=== PATIENT | female | born 1950 | race Caucasian/White ===

== ENCOUNTER → 2017-06-30 | Outpatient (CLI) | payer OTHER | LOC: BMCIMAGING 13:11 | PROVIDERS: ATTEND Orthopaedic Surgery | DX: M16.12 Unilateral primary osteoarthritis, left hip (principal) ==

== ENCOUNTER → 2017-08-05 | Outpatient (CLI) | payer OTHER | LOC: BMCIMAGING 13:15 | PROVIDERS: ATTEND Internal Medicine | DX: Z12.31 Encounter for screening mammogram for malignant neoplasm of breast (principal) | CPT/HCPCS: G0202 ==

== ENCOUNTER → 2017-09-09 | Outpatient (CLI) | payer OTHER | LOC: FIMAGING 09:59 | PROVIDERS: ATTEND Orthopaedic Surgery | DX: Z01.818 Encounter for other preprocedural examination (principal); M16.0 Bilateral primary osteoarthritis of hip; K57.30 Diverticulosis of large intestine without perforation or abscess without bleeding ==

== ENCOUNTER 2017-09-20 09:14 | Inpatient (IN) | payer OTHER ==
--- NOTE | 2017-09-20 06:37 | PDIAF ---
- Diagnosis Diagnosis: right hip arthritis Code Status: Full Code - Medication Management Discharge Medications: Medications to Continue on Transfer Cholecalciferol Vit D3 [Vitamin D3 (*)] 1,000 units PO DAILY 08/16/17 [Last Taken Unknown] Cyanocobalamin [Vitamin B12 (*)] 1,000 mcg PO DAILY 08/16/17 [Last Taken Unknown ] Levothyroxine [Synthroid 25 mcg (*)] 12.5 mcg PO DAILY06 08/16/17 [Last Taken Unknown] Discharge Medications: Refer to the Discharge Home Medication list for PRN reason. - Orders Services needed: Home Care, Physical Therapy Home Care Face to Face: I certify that this patient was under my care and that I had the required [id number] encounter meeting the encounter requirements on the discharge day. My findings support the fact that the patient is homebound as defined in Home Care Face to Face Continued: [facility] Chapter 7 Medicare Benefits Manual 30.1.1 , The condition of the patient is such that there exists a normal inability to leave home and consequently, leaving home would require a considerable and taxing effort. Diet Recommendation: no restrictions on diet Diet Texture: Regular Texture Diet Activity/Weight Bearing Restrictions: wbat. anterior hip precautions. daily dressing changes. ice prn. nava hose x 2 weeks. f/u at two weeks as previously scheduled. aspirin 325 mg po daily for six weeks. seek attn for increasing pain, cp, sob, drainage. fevers or other focal complaints - Follow Up Care Current Providers and Referrals: Lashell Wolf MD [Primary Care Provider] -
--- NOTE | 2017-09-20 06:37 | PDHPUP ---
History & Physical Update H&P update statement: This history and physical update is based on an assessment of the patient which was completed after admission or registration (within 24 hours), but prior to the surgery/procedure.
[~2017-09-20 09:14] MED LIST: ROPIVACAINE 0.2% 80 MG, EPINEPHrine 0.2 MG, KETOROLAC TROMETHAMINE 30 MG, morphINE 10 M... IU ONE; TRANEXAMIC ACID 1,700 MG in NS 100 ML IV ONE
[2017-09-20] MEDS ORDERED: ceFAZolin 2 GM/SWFI 2 GM/20 ML SYR IVP ONE (09:53)
[2017-09-20] MEDS ORDERED: ACETAMINOPHEN 325 MG TAB PO ONE (09:53)
[2017-09-20] MEDS ORDERED: FAMOTIDINE 20 MG TAB PO ONE (09:53)
[2017-09-20] MEDS ORDERED: LR 1,000 ML IV ONE (09:54)
[2017-09-20] MEDS ORDERED: LIDOCAINE 1% 2 ML INJ ID PRN (09:54)
[2017-09-20] MEDS ORDERED: ceFAZolin 1 GM/5 ML SYR ONE (10:32)
--- NOTE | 2017-09-20 10:33 | PDANEPAE ---
ANE History of Present Illness 67 yo female with B hip OA, but more pain on R hip for R JEANIE. ANE Past Medical History - Cardiovascular History Hx Hypertension: No Hx Arrhythmias: No Hx Chest Pain: No Hx Coronary Artery / Peripheral Vascular Disease: No Hx CHF / Valvular Disease: No Hx Palpitations: No - Pulmonary History Hx COPD: No Hx Asthma/Reactive Airway Disease: No Hx Recent Upper Respiratory Infection: No Hx Oxygen in Use at Home: No Hx Sleep Apnea: No Sleep Apnea Screening Result - Last Documented: Negative - Neurologic History Hx Cerebrovascular Accident: No Hx Seizures: No Hx Dementia: No - Endocrine History Hx Diabetes: No Hypothyroid: Yes Obesity: moderate - Renal History Hx Renal Disorders: No - Liver History Hx Hepatic Disorders: No - Neurological & Psychiatric Hx Hx Neurological and Psychiatric Disorders: No - Cancer History Hx Cancer: No - Congenital Disorder History Hx Congenital Disorders: No - GI History GERD: no Hx Gastrointestinal Disorders: No - Other Health History Other Health History: arthritis - Surgical History Prior Surgeries: tonsillectomy ANE Review of Systems Review of Systems: - Exercise capacity METS (RN): 4 METS - Systems Constitutional: Reports: no symptoms Cardiac: Reports: no symptoms Respiratory: Reports: no symptoms Gastrointestinal: Reports: no symptoms Muscolosketal: Reports: joint pain ANE Patient History - Allergies Allergies/Adverse Reactions: No Known Allergies Allergy (Unverified 08/16/17 14:41) - Home Medications Home Medications: Cholecalciferol Vit D3 [Vitamin D3 (*)] 1,000 units PO DAILY 08/16/17 [Last Taken 09/15/17] Cyanocobalamin [Vitamin B12 (*)] 1,000 mcg PO DAILY 08/16/17 [Last Taken ] Levothyroxine [Synthroid 25 mcg (*)] 12.5 mcg PO DAILY06 08/16/17 [Last Taken ] - NPO status NPO Since - Liquids (Date): 09/19/17 NPO Since - Liquids (Time): 17:00 NPO Since - Solids (Date): 09/19/17 NPO Since - Solids (Time): 17:00 - Anes Hx Anes Hx: no prior problems - Smoking Hx Smoking Status: Never smoked - Alcohol Use Alcohol Use: Heavy (4 drinks nightly) - Family Anes Hx Family Anes Hx: neg - N/A Family Hx Anesthesia Complications: none ANE Labs/Vital Signs - Vital Signs Blood Pressure: 141/83 Heart Rate: 101 Respiratory Rate: 16 O2 Sat (%): 92 Height: 165.1 cm Weight: 83.461 kg ANE Physical Exam - Airway Neck exam: FROM Mallampati Score: Class 3 Mouth exam: normal dental/mouth exam - Pulmonary Pulmonary: clear to auscultation - Cardiovascular Cardiovascular: regular rate and rhythym - ASA Status ASA Status: II ANE Anesthesia Plan Anesthesia Plan: spinal
[2017-09-20] MEDS ORDERED: fentaNYL 100 MCG/2 ML INJ ONE (11:16)
[2017-09-20] MEDS ORDERED: DEXAMETHASONE 4 MG/ML VIAL ONE (11:16)
[2017-09-20] MEDS ORDERED: ONDANSETRON 4 MG/2 ML VIAL ONE (11:16)
[2017-09-20] MEDS ORDERED: PROPOFOL/EMULSION 500 MG/50 ML BOTTLE IV ONE ×2 (11:17→12:10)
[2017-09-20] MEDS ORDERED: PHENYLEPHRINE HCL 100 MCG/ML SYR ONE ×3 (12:02→12:23)
[2017-09-20] MEDS ORDERED: PHENYLEPHRINE 10 MG/ML SDV ONE (12:44)
[2017-09-20] MEDS ORDERED: ALBUMIN 5% 250 ML BOTTLE IV ONE (12:47)
[2017-09-20] MEDS ORDERED: PROMETHAZINE HCL 25 MG/ML INJ IVP PRN ×2 (12:55→13:06)
[2017-09-20] MEDS ORDERED: BISACODYL 10 MG SUPP PR PRN (12:55)
[2017-09-20] MEDS ORDERED: ONDANSETRON DISINTEGRATING 4 MG TAB PO PRN (12:55)
[2017-09-20] MEDS ORDERED: ONDANSETRON 4 MG/2 ML VIAL IVP PRN (12:55)
[2017-09-20] MEDS ORDERED: METOCLOPRAMIDE 10 MG/2 ML VIAL IVP PRN (12:55)
[2017-09-20] MEDS ORDERED: TEMAZEPAM 15 MG CAP PO PRN (12:55)
[2017-09-20] MEDS ORDERED: POLYETHYLENE GLYCOL 3350 17 GM PKT PO PRN (12:55)
[2017-09-20] MEDS ORDERED: LACTULOSE 20 GM/30 ML UDCUP PO PRN (12:55)
[2017-09-20] MEDS ORDERED: MAGNESIUM HYDROXIDE 30 ML UDCUP PO PRN (12:55)
[2017-09-20] MEDS ORDERED: diphenhydrAMINE 25 MG CAP PO PRN (12:55)
[2017-09-20] MEDS ORDERED: DIPHENOXYLATE/ATROPINE LOMOTIL 1 TAB PO PRN (12:55)
[2017-09-20] MEDS ORDERED: PROMETHAZINE HCL 25 MG SUPPR PR PRN (12:55)
[2017-09-20] MEDS ORDERED: DIAZEPAM 5 MG TAB PO PRN (12:55)
[2017-09-20] MEDS ORDERED: LR 1,000 ML IV SCH (13:00)
[2017-09-20] MEDS ORDERED: fentaNYL 100 MCG/2 ML INJ IVP PRN (13:06)
[2017-09-20] MEDS ORDERED: LR 500 ML IV PRN (13:06)
[2017-09-20] MEDS ORDERED: ACETAMINOPHEN 500 MG TAB PO PRN (13:06)
[2017-09-20] MEDS ORDERED: NALOXONE HCL 0.4 MG/ML INJ IVP PRN (13:06)
[2017-09-20] MEDS ORDERED: PHENYLEPHRINE HCL 100 MCG/ML SYR IVP PRN (13:06)
[2017-09-20] MEDS ORDERED: ALBUTEROL 3 ML DEYVIAL IH PRN (13:06)
[2017-09-20] MEDS ORDERED: OXYCODONE/APAP 5/325 TAB PO PRN (13:06)
--- NOTE | 2017-09-20 13:22 | POSTANESTH ---
Post Anesthetic Evaluation Cardiovascular Status: Tx Hyper/Hypo-tension, Tx Over/Under Hydration (Suspect pt dehydrated plus untreated hypertension led to intra-operative hypotension. Continuing to give IVF as needed.) Respiratory Status: Normal, Stable Level of Consciousness/Mental Status: Can Participate in Eval, Moderately Sleepy Pain Control: Adequate, Prn Tx Ordered Nausea/Vomiting Control: Adequate, Prn Tx Ordered Complications Possibly Related to Anesthesia: None Noted
[2017-09-20] MEDS ORDERED: ceFAZolin 2 GM/DEXTROSE 100 ML IV SCH (14:00)
[2017-09-20] MEDS: oxyCODONE IR 5 MG TAB PO PRN ×3 (15:09→22:38)
[2017-09-20] MEDS: TRANEXAMIC ACID 650 MG TAB PO SCH ×2 (16:02→20:03)
[2017-09-20] MEDS: ACETAMINOPHEN 325 MG TAB PO SCH ×2 (18:13→23:55)
[2017-09-20] MEDS: ceFAZolin 2 GM/SWFI 2 GM/20 ML SYR IVP SCH (20:02)
[2017-09-20] MEDS: SENNOSIDES/DOCUSATE SODIUM TAB PO SCH (20:02)
[2017-09-20] MEDS: FAMOTIDINE 20 MG TAB PO SCH (20:03)
[2017-09-20] MEDS: ASPIRIN 325 MG TAB PO SCH (22:38)
[2017-09-21 04:55] VITALS: RESP 16
[2017-09-21 05:04] LABS: HEMATOCRIT 36.9 % (38.0-47.0); HEMOGLOBIN 12.7 g/dL (12.6-16.3)
[2017-09-21] MEDS: ceFAZolin 2 GM/SWFI 2 GM/20 ML SYR IVP SCH (05:19)
[2017-09-21] MEDS: TRANEXAMIC ACID 650 MG TAB PO SCH (05:20)
[2017-09-21] MEDS: ACETAMINOPHEN 325 MG TAB PO SCH (05:21)
[2017-09-21] MEDS ORDERED: LEVOTHYROXINE 25 MCG TAB PO SCH (06:00)
--- NOTE | 2017-09-21 07:23 | PDIAF ---
- Diagnosis Diagnosis: right hip arthritis Code Status: Full Code - Medication Management Discharge Medications: Medications to Continue on Transfer Cholecalciferol Vit D3 [Vitamin D3 (*)] 1,000 units PO DAILY 08/16/17 [Last Taken 09/15/17] Cyanocobalamin [Vitamin B12 (*)] 1,000 mcg PO DAILY 08/16/17 [Last Taken ] Levothyroxine [Synthroid 25 mcg (*)] 12.5 mcg PO DAILY06 08/16/17 [Last Taken ] Aspirin [Aspirin 325 mg (*)] 325 mg PO DAILY tab 09/21/17 [Last Taken Unknown] oxyCODONE IR [Oxycodone Ir (*)] 5 - 10 mg PO Q3HRS PRN #90 tab 09/21/17 [Last Taken Unknown] Discharge Medications: Refer to the Discharge Home Medication list for PRN reason. - Orders Services needed: Home Care, Physical Therapy Home Care Face to Face: I certify that this patient was under my care and that I had the required [id number] encounter meeting the encounter requirements on the discharge day. My findings support the fact that the patient is homebound as defined in Home Care Face to Face Continued: CMS Chapter 7 Medicare Benefits Manual 30.1.1 , The condition of the patient is such that there exists a normal inability to leave home and consequently, leaving home would require a considerable and taxing effort. Diet Recommendation: no restrictions on diet Diet Texture: Regular Texture Diet Activity/Weight Bearing Restrictions: wbat. anterior hip precautions. daily dressing changes. ice prn. nava hose x 2 weeks. f/u at two weeks as previously scheduled. aspirin 325 mg po daily for six weeks. seek attn for increasing pain, cp, sob, drainage. fevers or other focal complaints - Follow Up Care Current Providers and Referrals: Lashell Wolf MD [Primary Care Provider] -
[2017-09-21 07:40] VITALS: BP 116/68; PULSE 70; TEMP 97.4; O2SAT 95
[2017-09-21] MEDS: oxyCODONE IR 5 MG TAB PO PRN (07:47)
[2017-09-21] MEDS: SENNOSIDES/DOCUSATE SODIUM TAB PO SCH (09:32)
[2017-09-21] MEDS: ASPIRIN 325 MG TAB PO SCH (09:32)
[2017-09-21] MEDS: FAMOTIDINE 20 MG TAB PO SCH (09:32)
--- NOTE | 2017-09-21 14:27 | ASDISCHSUM ---
Discharge Information Plan Status:Home with No Needs Medically Cleared to Leave: Discharge Date:09/21/2017 11:59 AM CM D/C Disposition:Home, Routine, Self-Care ADT D/C Disposition:Home Health Service Projected Discharge Date:09/21/2017 11:59 AM Transportation at D/C: Discharge Delay Reason: Follow-Up Date:09/21/2017 11:59 AM Discharge Slot: Final Diagnosis: Placement Information Patient Contact Information Contact Name:LINDSEY Relationship: Address:[address] Work Phone: City:[place] Alternate Phone: State/Zip Code:[place] [address] Email: Financial Information Financial Class: Primary Plan Desc:MEDICARE INPATIENT Primary Plan Number:[id number] Secondary Plan Desc:[facility] Secondary Plan Number:[id number] Assessment Information CM 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 class; sent online vide o link CM Note CM Note Notes: Emma is planning to discharge back to her home after surgery. Her daughter, son, and will be home with her for support. Emma has set up outpatient therapy and will be obtaining a walker prior to her surgery. She expressed being in pain currently and had questions regarding medications. I encouraged her to follow-up with Dr. Herzog office for medical advice. Date Signed: 09/17/2017 09:00 AM Electronically Signed By:Janay Fernandez [facility] CM Progress Note CM Note CM Note Notes: Pt medically stable for d/c with family support, pt will follow up with outpatient PT. No CM d/c needs identified. Date Signed: 09/21/2017 02:26 PM Electronically Signed By:MJ Brown Intervention Information
--- NOTE | 2017-09-21 17:41 | GDS ---
[f rep st] DISCHARGE SUMMARY DATE OF PROCEDURE: 09/20/2017 ADMIT DIAGNOSIS: Left hip degenerative joint disease. DISCHARGE DIAGNOSIS: Left hip degenerative joint disease. PROCEDURE: Left total hip arthroplasty. HISTORY OF PRESENT ILLNESS: The patient is a 67-year-old woman with end-stage arthritis to both hips . She has limitations in her activities of daily living. She desires operative intervention. I hav e recommended total hip replacement. She understood the risks, benefits, and alternatives and wished to proceed. Written consent was signed and placed in the patient's chart. HOSPITAL COURSE: The patient was admitted to the hospital floor after an uncomplicated total hip art hroplasty to her left side. She tolerated the procedure well. Postoperative course was unremarkable . At the time of discharge, she is tolerating an oral diet. Pain is well controlled on oral medicin es. She is voiding without difficulty. Dressing is clean, dry, and intact. She has negative Homans . X-rays are stable, anatomic alignment with concentric reduction and no fracture. DISCHARGE ACTIVITY: She is weightbearing as tolerated. Anterior hip precautions. Daily dressing ch anges. No soaking or immersion. FOLLOWUP: For increasing pain, swelling, or other focal complaint. DISCHARGE MEDICATIONS: Oxycodone 5 mg 1-2 every 6 hours p.r.n. pain, aspirin 325 mg p.o. daily. /[id number]/MODL
--- NOTE | 2017-09-22 21:28 | GOP ---
[f rep st] OPERATIVE REPORT DATE OF OPERATION: 09/20/2017 SURGEON: Sanchez Aceves MD LINOLEUM PRINTER: Tera Magallanes, neurosurgical nurse. Also present PAMELA Camacho, was a medical necessity fo r the entirety of the case. PREOPERATIVE DIAGNOSIS: Left hip degenerative joint disease. POSTOPERATIVE DIAGNOSIS: Left hip degenerative joint disease. PROCEDURE PERFORMED: Left total hip arthroplasty-anterior/MAKOplasty. FINDINGS: SPECIMENS: To Pathology, the femoral head. DESCRIPTION OF PROCEDURE: The patient was identified in the preanesthesia area. The left hip clearl y demarcated as operative site with indelible marker. She was given 2 g of Ancef intravenously en ro jayme to the operative suite. In the OR, general endotracheal anesthesia was administered. Attention was turned to the pelvis and lower extremity which was sterilely prepped and draped in usual fashion. Appropriate time-out procedure was carried out. Attention was first turned to the right hemipelvis . A 2 cm incision was made over the ASIS and 3 pins were placed into the pelvic ilium. The pelvic r eference array was then affixed in standard fashion. Attention was then turned to the left hip. An anterior approach was made. This was carried sharply through the skin and subcutaneous tissue, direc tly to the fascia of the tensor fascia renato. The fascia was opened in a linear fashion, elevated off the tensor. The tensor was retracted laterally. The underlying vascular structures were identified , ligated, cauterized and transected. The rectus elevated off the anterior capsule. Retractors were placed in an extracapsular position over the medial and superior aspect of the femoral neck. A T wa s made in the capsule and the retractors were placed into an intracapsular position. There was gross bony changes consistent with arthritis. An acetabular checkpoint was then placed. A napkin wedge b one resection was made through the femoral neck and the head removed. The remnants of the acetabular labrum were sharply excised. The acetabulum was then reamed with a 52 mm outer diameter reamer to t he appropriate depth with an opening angle of 40 degrees and anteversion of 20 degrees. A 52 mm acet abular shell was then placed, confirmed to be fully seated and positioned, and a 32 mm X3 liner was t hen placed confirmed to be fully seated. Attention was turned to the femur which was delivered throu gh the wound with use of soft tissue releases, retractors and extension of the foot of the table. Th e proximal canal was opened, serial broaching carried out to a size 5 stem. Trial reduction with 127 degree size 5 stem and a 0 mm neck revealed appropriate leg length druze. She was approximate ly 0.5 cm longer than the right hip. This was planned given the gross shortening secondary to the ad vanced arthritis to her right hip. The trial stem component was withdrawn. A size 5 stem was fully seated and impacted, and a 32 mm 0 mm neck length Biolox head was then placed. This allowed full ext ension, external rotation to 90 degrees without subluxation. The wound was copiously irrigated. The soft tissue injected with a joint cocktail of ropivacaine, morphine, Toradol, and epinephrine. The fascia was closed using 0 Vicryl, subcutaneous tissue using 2-0 Monocryl and the skin was stapled. S terile dressing was applied. The patient was awakened, extubated, taken to recovery room in good sta ble condition. OPERATIVE INDICATIONS: The patient is a 67-year-old woman who has end-stage arthritis to her left hi p. Clinical and radiographic features are consistent with this. She has failed all attempts at cons ervative management. I have therefore recommended operative intervention with total hip replacement. She understood the risks, benefits, alternatives, and wished to proceed. Written consent was osbaldo d and placed in patient's chart. TOTAL TOURNIQUET TIME: None. COMPLICATIONS: None. IMPLANTS: The Wesson Tritanium acetabular shell, size 52 mm, Trident X3, 0 degree polyethylene inse rt, 32 mm, Accolate 227 degree neck angle hip stem, size 5, and a 32 mm +0 mm neck length Biolox head . DISPOSITION: To the recovery room, then the floor. She is weightbearing as tolerated. Anterior hip precautions. /[id number]/MODL
== END 2017-09-21 11:59 | disposition home health service (06) | DRG 470 ==
LOC: F3N 09:39
PROVIDERS: ADMIT Orthopaedic Surgery; ATTEND Orthopaedic Surgery
PROC: 0SRB04Z Replacement of Left Hip Joint with Ceramic on Polyethylene Synthetic Substitute, Open Approach (ICD-10-PCS; principal; 2017-09-20 12:00)
PROC: 8E0Y0CZ Robotic Assisted Procedure of Lower Extremity, Open Approach (ICD-10-PCS; principal; 2017-09-20 12:00)
DX: M16.12 Unilateral primary osteoarthritis, left hip (principal)
CPT/HCPCS: 97116-GP; 97161-GP; 97165-GO; G8978-GP-CI; G8979-GP-CI; G8980-GP-CI; G8987-GO-CI; G8988-GO-CI; G8989-GO-CI; J0171; J0690; J1100; J1885; J2370; J2405; J2704; J2795; J3010; P9041

== ENCOUNTER → 2017-10-13 | Outpatient (CLI) | payer OTHER | LOC: BMCIMAGING 13:09 | PROVIDERS: ATTEND Orthopaedic Surgery | DX: M16.11 Unilateral primary osteoarthritis, right hip (principal) ==

== ENCOUNTER → 2017-10-29 | Outpatient (CLI) | payer OTHER | LOC: BMCIMAGING 14:08 | PROVIDERS: ATTEND Orthopaedic Surgery | DX: Z47.1 Aftercare following joint replacement surgery (principal); Z96.642 Presence of left artificial hip joint ==

== ENCOUNTER → 2017-12-14 | Outpatient (CLI) | payer OTHER | LOC: BMCIMAGING 14:20 | PROVIDERS: ATTEND Orthopaedic Surgery | DX: Z47.1 Aftercare following joint replacement surgery (principal); M16.11 Unilateral primary osteoarthritis, right hip; Z96.642 Presence of left artificial hip joint ==

== ENCOUNTER → 2018-01-25 | Outpatient (CLI) | payer OTHER | LOC: FIMAGING 11:38 | PROVIDERS: ATTEND Orthopaedic Surgery | DX: Z01.818 Encounter for other preprocedural examination (principal); M16.11 Unilateral primary osteoarthritis, right hip; Z96.642 Presence of left artificial hip joint ==

== ENCOUNTER 2018-02-07 08:45 | Inpatient (IN) | payer OTHER ==
--- NOTE | 2018-02-07 06:25 | PDHPUP ---
History & Physical Update H&P update statement: This history and physical update is based on an assessment of the patient which was completed after admission or registration (within 24 hours), but prior to the surgery/procedure. H&P update: no change in patient's condition since H&P completed
--- NOTE | 2018-02-07 06:26 | PDIAF ---
- Diagnosis Diagnosis: right hip djd Code Status: Full Code - Medication Management Discharge Medications: Medications to Continue on Transfer Cholecalciferol Vit D3 [Vitamin D3 (*)] 1,000 units PO DAILY 08/16/17 [Last Taken 09/15/17] Cyanocobalamin [Vitamin B12 (*)] 1,000 mcg PO DAILY 08/16/17 [Last Taken ] Levothyroxine [Synthroid 25 mcg (*)] 12.5 mcg PO DAILY06 08/16/17 [Last Taken ] Discharge Medications: Refer to the Discharge Home Medication list for PRN reason. - Orders Services needed: Physical Therapy Diet Recommendation: no restrictions on diet Diet Texture: Regular Texture Diet Activity/Weight Bearing Restrictions: wbat. anterior hip precautions. keep dressing. if dressing becomes saturated, change daily. may shower without bandage. f/u at two weeks. seek attn for increasing pain, chest pain, shortness of breath, drainage or other focal complaint - Follow Up Care Current Providers and Referrals: Lashell Wolf MD [Primary Care Provider] -
[~2018-02-07 08:45] MED LIST changes: +NS IV ONE; -TRANEXAMIC ACID 1,700 MG in NS 100 ML IV ONE; +TRANEXAMIC ACID IV ONE
[2018-02-07] MEDS ORDERED: ceFAZolin 2 GM/SWFI 2 GM/20 ML SYR IVP ONE (09:12)
[2018-02-07] MEDS ORDERED: ACETAMINOPHEN 325 MG TAB PO ONE (09:12)
[2018-02-07] MEDS ORDERED: FAMOTIDINE 20 MG TAB PO ONE (09:12)
[2018-02-07] MEDS ORDERED: LR 1,000 ML IV ONE (09:13)
[2018-02-07] MEDS ORDERED: LIDOCAINE 1% 2 ML INJ ID PRN (09:13)
[2018-02-07] MEDS ORDERED: ceFAZolin 1 GM/5 ML SYR ONE (09:35)
[2018-02-07] MEDS ORDERED: MIDAZOLAM 2 MG/2 ML VIAL IVP ONE (09:39)
[2018-02-07] MEDS ORDERED: PROPOFOL 200 MG/20 ML VIAL ONE ×2 (09:40→11:13)
[2018-02-07] MEDS ORDERED: fentaNYL 100 MCG/2 ML INJ ONE ×2 (09:40→12:31)
--- NOTE | 2018-02-07 09:41 | PDANEPAE ---
ANE Past Medical History - Cardiovascular History Hx Hypertension: No Hx Arrhythmias: No Hx Chest Pain: No Hx Coronary Artery / Peripheral Vascular Disease: No Hx CHF / Valvular Disease: No Hx Palpitations: No - Pulmonary History Hx COPD: No Hx Asthma/Reactive Airway Disease: No Hx Recent Upper Respiratory Infection: No Hx Oxygen in Use at Home: No Hx Sleep Apnea: No Sleep Apnea Screening Result - Last Documented: Negative - Neurologic History Hx Cerebrovascular Accident: No Hx Seizures: No Hx Dementia: No - Endocrine History Hx Diabetes: No - Renal History Hx Renal Disorders: No - Liver History Hx Hepatic Disorders: No - Neurological & Psychiatric Hx Hx Neurological and Psychiatric Disorders: No - Cancer History Hx Cancer: No - Congenital Disorder History Hx Congenital Disorders: No - GI History Hx Gastrointestinal Disorders: No - Other Health History Other Health History: arthritis - Chronic Pain History Chronic Pain: Yes - Surgical History Prior Surgeries: tonsillectomy ANE Review of Systems Review of Systems: - Exercise capacity METS (RN): 4 METS ANE Patient History - Allergies Allergies/Adverse Reactions: No Known Allergies Allergy (Verified 01/12/18 12:09) - Home Medications Home Medications: Cholecalciferol Vit D3 [Vitamin D3 (*)] 1,000 units PO DAILY 08/16/17 [Last Taken 09/15/17] Cyanocobalamin [Vitamin B12 (*)] 1,000 mcg PO DAILY 08/16/17 [Last Taken ] Levothyroxine [Synthroid 25 mcg (*)] 12.5 mcg PO DAILY06 08/16/17 [Last Taken ] - NPO status NPO Since - Liquids (Date): 02/06/18 NPO Since - Liquids (Time): 20:00 NPO Since - Solids (Date): 02/06/18 NPO Since - Solids (Time): 14:00 - Anes Hx Anes Hx: no prior problems - Smoking Hx Smoking Status: Never smoked - Family Anes Hx Family Hx Anesthesia Complications: none ANE Labs/Vital Signs - Vital Signs Blood Pressure: 131/103 Heart Rate: 86 Respiratory Rate: 20 O2 Sat (%): 93 Height: 165.1 cm Weight: 81.647 kg ANE Physical Exam - Airway Neck exam: FROM Mallampati Score: Class 2 Mouth exam: normal dental/mouth exam - Pulmonary Pulmonary: no respiratory distress, no rales or rhonchi, clear to auscultation - Cardiovascular Cardiovascular: regular rate and rhythym, no murmur, rub, or gallop - ASA Status ASA Status: II ANE Anesthesia Plan Anesthesia Plan: spinal
[2018-02-07] MEDS ORDERED: MIDAZOLAM 2 MG/2 ML VIAL ONE (09:42)
[2018-02-07] MEDS ORDERED: DEXAMETHASONE 4 MG/ML VIAL ONE ×2 (09:54)
[2018-02-07] MEDS ORDERED: DIAZEPAM 5 MG TAB PO PRN (10:03)
[2018-02-07] MEDS ORDERED: oxyCODONE IR 5 MG TAB PO PRN ×2 (10:03→11:04)
[2018-02-07] MEDS ORDERED: ONDANSETRON DISINTEGRATING 4 MG TAB PO PRN (10:03)
[2018-02-07] MEDS ORDERED: DIPHENOXYLATE/ATROPINE LOMOTIL 1 TAB PO PRN (10:03)
[2018-02-07] MEDS ORDERED: TEMAZEPAM 15 MG CAP PO PRN (10:03)
[2018-02-07] MEDS ORDERED: MAGNESIUM HYDROXIDE 30 ML UDCUP PO PRN (10:03)
[2018-02-07] MEDS ORDERED: traMADol 50 MG TAB PO PRN (10:03)
[2018-02-07] MEDS ORDERED: METOCLOPRAMIDE 10 MG/2 ML VIAL IVP PRN (10:03)
[2018-02-07] MEDS ORDERED: LACTULOSE 20 GM/30 ML UDCUP PO PRN (10:03)
[2018-02-07] MEDS ORDERED: ONDANSETRON 4 MG/2 ML VIAL IVP PRN ×2 (10:03→11:04)
[2018-02-07] MEDS ORDERED: PROMETHAZINE HCL 25 MG SUPPR PR PRN (10:03)
[2018-02-07] MEDS ORDERED: PROMETHAZINE HCL 25 MG/ML INJ IVP PRN ×2 (10:03→11:04)
[2018-02-07] MEDS ORDERED: POLYETHYLENE GLYCOL 3350 17 GM PKT PO PRN (10:03)
[2018-02-07] MEDS ORDERED: diphenhydrAMINE 25 MG CAP PO PRN (10:03)
[2018-02-07] MEDS ORDERED: BISACODYL 10 MG SUPP PR PRN (10:03)
--- NOTE | 2018-02-07 10:16 | PDMN ---
Medical Necessity Medical necessity: [facility] [place]: S560 hip arthroplasty - INPT only R JEANIE
[2018-02-07] MEDS ORDERED: LR 1,000 ML IV SCH (10:30)
[2018-02-07] MEDS ORDERED: NALOXONE HCL 0.4 MG/ML INJ IVP PRN (11:04)
[2018-02-07] MEDS ORDERED: ACETAMINOPHEN 500 MG TAB PO PRN (11:04)
[2018-02-07] MEDS ORDERED: LR 500 ML IV PRN (11:04)
--- NOTE | 2018-02-07 12:13 | POSTANESTH ---
Post Anesthetic Evaluation Cardiovascular Status: Other, See Comment (BP 90s/60s on arrival, but awake and comfortable.) Respiratory Status: Normal, Stable, Similar to Pre-op Cond. Level of Consciousness/Mental Status: Can Participate in Eval, Alert and Oriented Pain Control: Adequate, Prn Tx Ordered Nausea/Vomiting Control: Adequate, Prn Tx Ordered Complications Possibly Related to Anesthesia: None Noted
[2018-02-07] MEDS: fentaNYL 100 MCG/2 ML INJ IVP PRN ×2 (12:32→12:41)
[2018-02-07] MEDS ORDERED: ceFAZolin 2 GM/DEXTROSE 100 ML IV SCH (14:00)
[2018-02-07] MEDS: TRANEXAMIC ACID 650 MG TAB PO SCH ×2 (15:09→18:43)
[2018-02-07] MEDS: ACETAMINOPHEN 325 MG TAB PO SCH ×3 (15:09→23:41)
[2018-02-07] MEDS: ceFAZolin 2 GM/SWFI 2 GM/20 ML SYR IVP SCH (18:44)
[2018-02-07] MEDS: ASPIRIN 325 MG TAB PO SCH (20:46)
[2018-02-07] MEDS: SENNOSIDES/DOCUSATE SODIUM TAB PO SCH (20:46)
[2018-02-07] MEDS: FAMOTIDINE 20 MG TAB PO SCH (20:46)
[2018-02-08] MEDS: TRANEXAMIC ACID 650 MG TAB PO SCH (02:06)
[2018-02-08] MEDS: ceFAZolin 2 GM/SWFI 2 GM/20 ML SYR IVP SCH (02:07)
[2018-02-08] MEDS: ACETAMINOPHEN 325 MG TAB PO SCH ×2 (05:52→11:39)
[2018-02-08] MEDS ORDERED: LEVOTHYROXINE 25 MCG TAB PO SCH (06:00)
--- NOTE | 2018-02-08 07:08 | GDS ---
[f rep st] DISCHARGE SUMMARY ADMIT DIAGNOSIS: Right hip degenerative joint disease. DISCHARGE DIAGNOSIS: Right hip degenerative joint disease. PROCEDURE: Right total hip arthroplasty. HISTORY OF PRESENT ILLNESS: The patient is a 67-year-old woman with end-stage arthritis to her right hip. She is known to me for previous left total hip replacement. She has failed all attempts at co nservative management. She has interference with her activities of daily living from her right hip. I have recommended total hip replacement. She understood the risks, benefits, alternatives, and wis hed to proceed. Written consent was signed and placed in patient's chart. HOSPITAL COURSE: The patient was admitted to the hospital floor after uncomplicated total hip arthro plasty. She tolerated the procedure well. Postoperative course was uneventful. At the time of disc harge, she is tolerating an oral diet. Pain is well-controlled on oral medicine. She is voiding wit hout difficulty. Dressing is clean, dry, and intact. She has intact sensation to light touch throug hout both lower extremities. Negative calf swelling, tenderness. Negative Homans. X-rays are anato tete with concentric reduction. No fracture or lucency. DISCHARGE ACTIVITY: She is weightbearing as tolerated. Anterior hip precautions. Daily dressing ch anges. May shower without the bandage. No soaking or immersion. FOLLOWUP: Follow up at 2 weeks. Seek attention for increasing redness, swelling, drainage, discharg e, other focal complaints. DISCHARGE MEDICATIONS: Oxycodone 5 mg 1-2 every 4 hours p.r.n. pain, aspirin 325 mg p.o. daily for 6 weeks. /[id number]/MODL
[2018-02-08] MEDS: SENNOSIDES/DOCUSATE SODIUM TAB PO SCH (08:05)
[2018-02-08] MEDS: ASPIRIN 325 MG TAB PO SCH (08:05)
[2018-02-08] MEDS: FAMOTIDINE 20 MG TAB PO SCH (08:05)
[2018-02-08 08:54] VITALS: BP 120/82
[2018-02-08] MEDS ORDERED: CYANO/VITAMIN B12 1000 MCG TAB PO SCH (09:00)
--- NOTE | 2018-02-08 16:06 | ASMTCMCOM ---
CM Note CM Note Notes: PT rec home. Pt resides with spouse. Pt medically stable for d/c no CM d/c needs identified. Date Signed: 02/08/2018 04:05 PM Electronically Signed By:MJ Brown
--- NOTE | 2018-02-09 07:40 | GOP ---
[f rep st] OPERATIVE REPORT DATE OF OPERATION: 02/07/2018 SURGEON: Sanchez Aceves MD WARDROBE SPECIALIST: Tera Nuñez, surgical coder, who was a medical necessity for the entirety of the case. PREOPERATIVE DIAGNOSIS: Right hip degenerative joint disease. POSTOPERATIVE DIAGNOSIS: Right hip degenerative joint disease. PROCEDURE PERFORMED: Right total hip arthroplasty. FINDINGS: SPECIMENS: The femoral head. ESTIMATED BLOOD LOSS: 300 mL INDICATIONS: Emma Hernandes is a 67-year-old woman who is well known to me. She has previously under gone left total hip replacement. She has end-stage arthritis to her right hip. She returns for elec tive right total hip replacement. DESCRIPTION OF PROCEDURE: The patient identified in the preanesthesia area. The right hip clearly d emarcated as the operative site with indelible marker. She was given 2 g of Ancef intravenously en r oute to the operative suite. In the OR, a spinal anesthetic was placed followed by sedation. She wa s positioned in the supine position. All bony prominences were well padded. The pelvis and both low er extremities were then sterilely prepped and draped in the usual fashion. Appropriate time-out pro cedure was carried out. Attention was first turned to the left hemipelvis. A 2 cm incision was made over the ASIS and iliac crest. Three pins were then placed and the pelvic reference array affixed. Attention was then turned to the right hip. An anterior approach was made. Thick subcutaneous flap s were elevated followed by opening of the fascia of the tensor in a linear fashion. The tensor musc le was then retracted laterally. The underlying vascular structures were identified, ligated, cauter ized and transected. The rectus was elevated off the anterior capsule and a retractor placed deep to this over the superior aspect of the femoral neck and medial aspect of the femoral neck. A T was ma de in the capsule and retractors were placed into an intracapsular position. There was gross arthrit ic change throughout the hip joint. An acetabular checkpoint was then placed. A bony wedge was with drawn from the femoral neck as were the remnants of the femoral head. The surrounding contents of th e acetabulum soft tissue were then sharply excised. The bony reference points were then entered into the computer in usual fashion. Using a 50 mm reamer and the MAKOplasty robot arm, a single stage re aming was carried out with an opening angle of 40 degrees and anteversion of 20 degrees. A 50 mm hem ispherical shell was then impacted, confirmed to be fully seated. A 0-degree X3 liner was then place d with a 32 mm inner diameter. This too was confirmed to be fully seated. The patient was then turn ed into the supine position. Retractors were placed. The femur was delivered through the wound with use of extension of the table and soft tissue releases. Serial broaching was carried out to a size 5 broach and this reduction was confirmed under image intensification. The size 5 trial stem was wit hdrawn and the final 5 stem impacted in the same orientation to the appropriate depth. A 32 mm -4 mm Biolox head was ultimately selected to restore leg lengths and complete stability through external r otation, extension and extension of the leg. The hip was reduced concentrically after copious irriga tion. The tissue was injected with a joint cocktail of ropivacaine, morphine, Toradol, and epinephri ne. The fascia closed using 0 Vicryl, subcutaneous tissue using 2-0 Monocryl and the skin was staple d. Sterile dressing was applied to both sides. The patient was awakened, extubated and taken to rec overy room in good stable condition. TOTAL TOURNIQUET TIME: None. COMPLICATIONS: None. IMPLANTS: The Windsor Tritanium acetabular shell, size 50, Trident X3 0-degree polyethylene insert, size 32 mm inner diameter, alpha code D, Accolate II 127 degree neck angle hip stem size 5 and a Biol ox delta ceramic head, 32 mm -4 mm neck length. DISPOSITION: To the recovery room, then the floor. She is weightbearing as tolerated. Anterior hip precautions will be observed. /[id number]/MODL
== END 2018-02-08 12:54 | disposition home or self-care (01) | DRG 470 ==
LOC: F3N 08:45
PROVIDERS: ADMIT Orthopaedic Surgery; ATTEND Orthopaedic Surgery
PROC: 0SR904Z Replacement of Right Hip Joint with Ceramic on Polyethylene Synthetic Substitute, Open Approach (ICD-10-PCS; principal; 2018-02-07 10:45)
DX: M16.11 Unilateral primary osteoarthritis, right hip (principal); Z96.642 Presence of left artificial hip joint
CPT/HCPCS: 97116-GP; 97161-GP; 97165-GO; 97530-GP; J0171; J0690; J1100; J1885; J2250; J2270; J2704; J2795; J3010

== ENCOUNTER → 2018-02-15 | Outpatient (CLI) | payer OTHER | LOC: BMCIMAGING 13:02 | PROVIDERS: ATTEND Orthopaedic Surgery | DX: Z98.890 Other specified postprocedural states (principal); Z96.641 Presence of right artificial hip joint ==

== ENCOUNTER → 2018-03-22 | Outpatient (CLI) | payer OTHER | LOC: BMCIMAGING 14:51 | PROVIDERS: ATTEND Physician Assistant | DX: Z96.641 Presence of right artificial hip joint (principal) ==

== ENCOUNTER → 2018-12-28 | Outpatient (CLI) | payer OTHER | LOC: BMCIMAGING 08:48 | PROVIDERS: ATTEND Internal Medicine | DX: Z12.31 Encounter for screening mammogram for malignant neoplasm of breast (principal) ==

== ENCOUNTER → 2018-12-28 | Outpatient (CLI) | payer OTHER | LOC: BMCIMAGING 08:53 | PROVIDERS: ATTEND Physician Assistant | DX: M25.551 Pain in right hip (principal); M25.552 Pain in left hip; Z96.643 Presence of artificial hip joint, bilateral ==